=== PATIENT | female | born 1950 | race Caucasian/White ===

== ENCOUNTER 2016-08-02 13:22 | Inpatient (IN) | payer MEDICARE, MEDICAID ==
[~2016-08-02] VITALS: Ht 152.4 cm; Wt 53.5 kg
--- NOTE | 2016-08-02 13:22 | NUR ---
dr amado at the bedside for eval and exam.
[2016-08-02] MEDS ORDERED: ATOR20TA PO (13:48)
[2016-08-02] MEDS ORDERED: ISOS10TA2 PO (13:48)
[2016-08-02] MEDS ORDERED: AMLO5TAB4 PO (13:48)
[2016-08-02] MEDS ORDERED: HYDR50TA68 PO (13:48)
[2016-08-02] MEDS ORDERED: CLON0.3T PO (13:48)
[2016-08-02] MEDS ORDERED: MAGN400O4 PO (13:48)
[2016-08-02] MEDS ORDERED: SITA50TA PO (13:48)
[2016-08-02] MEDS ORDERED: CLON0.1T PO (13:48)
[2016-08-02] MEDS ORDERED: ATEN-171 PO (13:48)
[2016-08-02] MEDS ORDERED: ACET-2154 PO (13:48)
[2016-08-02] MEDS ORDERED: ACCUCHECK (13:50)
--- NOTE | 2016-08-02 13:51 | NUR ---
PT IS CALM AND COOPERATIVE AT THIS TIME, RESTRAINES REMOVED. LUNCH PROVIDED.
[2016-08-02 14:22] LABS: ALANINE AMINOTRANSFERASE 18 U/L (14-59); ALBUMIN 3.4 g/dL (3.4-5.0); ALKALINE PHOSPHATASE 63 U/L (50-136); ASPARTATE AMINOTRANSFERASE 18 U/L (15-37); BILIRUBIN,DIRECT 0.1 mg/dL (0.0-0.2); BILIRUBIN,TOTAL 0.6 mg/dL (0.2-1.0); CALCIUM 9.3 mg/dL (8.5-10.1); CARBON DIOXIDE 27 mmol/L (21-32); CHLORIDE 104 mmol/L (98-107); CREATININE 2.2 mg/dL (0.6-1.3); GFR 22 mL/min (>60); GLUCOSE 144 mg/dL (74-106); POTASSIUM 4.3 mmol/L (3.5-5.1); SODIUM SERUM 139 mmol/L (136-145); TOTAL PROTEIN, SERUM 7.5 g/dL (6.4-8.2); UREA NITROGEN, BLOOD 27 mg/dL (7-18)
[2016-08-02 14:23] LABS: ACETAMINOPHEN < 2.0 ug/mL (10-30)
[2016-08-02 14:38] LABS: ETHANOL < 3 MG/DL (0-0)
--- NOTE | 2016-08-02 14:40 | NUR ---
ASSISST PT TO BATHROOM FOR URINE, PT STATES SHE TRIED TO URINATE BUT NO URINE RIGHT NOW. MD OFFERED FOR PT TO HAVE A IN AND OUT F/C FOR URINE COLLECTION, PT STATED TO WAIT. EXTRA FLUIDS PROVIDED PER PT'S REQUEST.
--- NOTE | 2016-08-02 14:44 | NUR ---
[facility] COLLECTED AND SENT TO LAB. BELONGING LIST COMPLETED.
[2016-08-02 14:59] LABS: HEMATOCRIT 39.7 % (37.0-47.0); HEMOGLOBIN 12.5 g/dL (12.0-16.0); MEAN CORPUSCULAR HEMOGLOBIN 27.9 uug (27.0-31.0); MEAN CORPUSCULAR HGB CONC 32 g/dL (32.0-37.0); MEAN CORPUSCULAR VOLUME 88.6 fL (81.0-99.0); PLATELET COUNT (AUTO) 421 K/uL (150-450); RED BLOOD CELL COUNT(AUTO) 4.49 MIL/uL (4.20-5.40); RED CELL DISTRIBUTION WIDTH 14.3 % (11.5-14.5); WHITE BLOOD COUNT (AUTO) 7.8 K/uL (4.0-11.2)
--- NOTE | 2016-08-02 15:05 | NUR ---
PT IS MEDICALLY CLEARED BY DR RAMIREZ.
[2016-08-02 15:24] LABS: EOSINOPHILS % (MANUAL) 5 % (0-8); LYMPHOCYTES % (MANUAL) 22 % (20-40); MONOCYTES % (MANUAL) 7 % (2-10); NEUTROPHILS % (MANUAL) 66 % (42-75)
[2016-08-02] MEDS ORDERED: ACETAMINOPHEN 325 MG TABLET PO PRN (15:45)
[2016-08-02] MEDS ORDERED: TEMAZEPAM 7.5 MG CAPSULE PO PRN (15:45)
[2016-08-02] MEDS ORDERED: MAG HYDROX/AL HYDROX/SIMETH 30 ML LIQUID UDC PO PRN (15:45)
[2016-08-02] MEDS ORDERED: LORAZEPAM 0.5 MG TABLET PO PRN ×2 (15:45→19:45)
[2016-08-02] MEDS ORDERED: MAGNESIUM HYDROXIDE 30 ML LIQUID UDC PO PRN (15:45)
--- NOTE | 2016-08-02 15:45 | NUR ---
Pt received from ER on [facility]. Pt is anxious, easily irritable, and uncooperative. Refuses to sign all paperwork. When asked if she wanted staff to call son or daughter to inform of admission, pt responded "I don't have any family or friends. Don't call anyone." No overtly aggressive or combative behavior noted at this time. Appears depressed, flat affect, avoiding eye contact.
[2016-08-02 16:29] VITALS: BP 142/80
[2016-08-02] MEDS ORDERED: hydrALAZINE HCL 50 MG TABLET PO SCH (17:45)
[2016-08-02] MEDS ORDERED: ATENOLOL 50 MG TABLET PO SCH (17:45)
[2016-08-02] MEDS ORDERED: AMLODIPINE 5 MG TABLET PO SCH (17:45)
[2016-08-02] MEDS ORDERED: DEXTROSE 50% 50 ML DISP.SYRIN IV PRN (18:00)
--- NOTE | 2016-08-02 18:19 | NUR ---
Pt noted to have thrown dinner tray on the floor. Pt eating leftover food on table while laying down. Informed of aspiration risk, pt responded "I'm not a child, ok?" Pt also refused 2 BP medications. Risks and benefits explained. Pt states "They don't work, I don't need it, I've always had high blood pressure." Pt continues to refuse. Remains easily irritable but not combative or aggressive.
[2016-08-02 20:11] VITALS: BP 160/75
[2016-08-02] MEDS: BLOOD SUGAR DIAGNOSTIC 1 EACH STRIP VI SCH (21:28)
[2016-08-02] MEDS: ATORVASTATIN 20 MG TABLET PO SCH (21:29)
[2016-08-02] MEDS: CLONIDINE HCL 0.1 MG TABLET PO PRN (21:32)
[2016-08-02] MEDS: INSULIN REGULAR, HUMAN 300 UNIT/3 ML VIAL SQ PRN (21:38)
--- NOTE | 2016-08-02 22:00 | NUR ---
received to care, lying in bed, with the covers pulled over her face. remains isolative. resistive to interactions. compliant with bedtime medications, except for her sliding scale insulin(BLOOD SUGAR WAS 167), which she refused. as of 2199, she remains asleep. no distress noted. will continue to monitor closely.
[2016-08-02] MEDS: hydrALAZINE HCL 50 MG TABLET PO SCH (22:36)
--- NOTE | 2016-08-03 06:00 | NUR ---
slept 8.5 hours, total. compliant with AM meds, and accucheck. remains labile, when approached.
[2016-08-03] MEDS: hydrALAZINE HCL 50 MG TABLET PO SCH ×3 (06:09→22:00)
[2016-08-03] MEDS: BLOOD SUGAR DIAGNOSTIC 1 EACH STRIP VI SCH ×4 (06:09→20:41)
--- NOTE | 2016-08-03 06:30 | NUR ---
refused AM labs.
[2016-08-03 07:30] VITALS: BP 153/71
[2016-08-03] MEDS ORDERED: ATENOLOL 50 MG TABLET PO SCH (09:00)
[2016-08-03] MEDS ORDERED: SITAGLIPTIN PHOSPHATE 50 MG TABLET PO SCH (09:00)
[2016-08-03] MEDS: AMLODIPINE 5 MG TABLET PO SCH ×2 (10:22→20:30)
[2016-08-03] MEDS: LINAGLIPTIN 5 MG TABLET PO SCH (10:23)
[2016-08-03] MEDS: ISOSORBIDE DINITRATE 10 MG TABLET PO SCH ×3 (10:23→17:26)
[2016-08-03] MEDS: CLONIDINE HCL 0.3 MG TABLET PO SCH ×3 (10:23→17:26)
[2016-08-03] MEDS: ATENOLOL 50 MG TABLET PO SCH (12:43)
[2016-08-03] MEDS ORDERED: SERTRALINE HCL 50 MG TABLET PO SCH (14:45)
[2016-08-03] MEDS: DIVALPROEX SPRINKLE 125 MG CAP.SPRINK PO SCH ×2 (16:20→20:29)
--- NOTE | 2016-08-03 16:20 | NUR ---
Initial discharge instructions: The patient resides at [facility] ([facility]) [[address] [facility] [place] [address]; ]. Spoke with Rhina in admissions who stated that they will accept the patient back when she is stable. Spoke with the patient's daughter Naheed who stated that she would like for the patient to return there upon discharge. SW will speak with patient, family, and MD regarding most appropriate discharge plan. SS will form a safe and proper discharge.
[2016-08-03 16:35] VITALS: BP 131/64
[2016-08-03] MEDS: INSULIN REGULAR, HUMAN 300 UNIT/3 ML VIAL SQ PRN ×2 (17:27→17:35)
[2016-08-03] MEDS: ATORVASTATIN 20 MG TABLET PO SCH (20:29)
[2016-08-03 20:30] VITALS: BP 146/80
--- NOTE | 2016-08-03 22:00 | NUR ---
received to care, lying in bed, isolative, and easilly agitated. as of 2199, remains asleep, in bed. no interactions with peers. compliant with medications, except for her accucheck, which she refused. as of 2199, she remains asleep, but easy to awaken. no distress noted. will continue to monitor closely.
[2016-08-04] MEDS: BLOOD SUGAR DIAGNOSTIC 1 EACH STRIP VI SCH ×4 (06:04→21:00)
[2016-08-04] MEDS: hydrALAZINE HCL 50 MG TABLET PO SCH ×3 (06:04→21:47)
--- NOTE | 2016-08-04 06:23 | NUR ---
slept 8.0 hours, total. compliant with AM meds, and accucheck. appears cooperative, but suspicious, when approached. currently lying in bed. no distress noted.
[2016-08-04 07:30] VITALS: BP 120/71
[2016-08-04] MEDS: CLONIDINE HCL 0.3 MG TABLET PO SCH ×3 (09:00→17:44)
[2016-08-04] MEDS: DIVALPROEX SPRINKLE 125 MG CAP.SPRINK PO SCH ×2 (10:18→21:00)
[2016-08-04] MEDS: AMLODIPINE 5 MG TABLET PO SCH ×2 (10:20→21:00)
[2016-08-04] MEDS: ISOSORBIDE DINITRATE 10 MG TABLET PO SCH ×3 (10:20→17:44)
[2016-08-04] MEDS: LINAGLIPTIN 5 MG TABLET PO SCH (10:22)
[2016-08-04] MEDS: ATENOLOL 50 MG TABLET PO SCH (10:25)
--- NOTE | 2016-08-04 12:32 | NUR ---
WEEKLY MEETING PO INTAKE 0-50%, RECOMMEND ADDING BOOST GLUCOSE CONTROL BID IF PO INTAKE CONTINUES <50% BM PRESENT, SKIN INTACT NOTED ELEVATED BLOOD GLUCOSE LABS, WITH ORDER FOR INSULIN SSI MEDS: NORVASC,LIPITOR, DNI NORVASC WITH LOW NA DIET NUTRITION DIAGNOSIS: POOR PO INTAKE RELATED TO MENTAL STATUS EVIDENCED BY PO INTAKE 0-50% ALTERED NUTRITION RELATED LABS RELATED TO ENDOCRINE DYSFUNCTION EVIDENCED BY ELEVATED BG LABS MONITOR PO INTAKE, LABS Addendum: 08/04/16 at [address] Amended: Links added.
[2016-08-04 13:45] VITALS: BP 133/68
[2016-08-04 15:15] VITALS: BP 144/74
[2016-08-04 16:00] VITALS: BP_SYST 109; BP_SYST 134; BP_DIAS 60; BP_DIAS 61
[2016-08-04 18:56] LABS: *BILIRUBIN,URIN NEGATIVE (NEGATIVE); *BLOOD, URINE NEGATIVE (NEGATIVE); *CLARITY,URINE CLEAR (CLEAR); *COLOR,URINE YELLOW (YELLOW); *KETONES,URINE NEGATIVE (NEGATIVE); *PROTEIN,URINE 3+ (NEGATIVE); *UROBILINOGEN,URINE 0.2 E.U./dl (NORMAL); LEUKOCYTE ESTERASE ,URINE NEGATIVE (NEGATIVE); NITRITE, URINE NEGATIVE (NEGATIVE); PH,URINE 6.5 (5.0-8.0); UGLUCOSE TRACE (NEGATIVE)
[2016-08-04 19:08] LABS: *AMPHETAMINE, URINE NEGATIVE (NEGATIVE); *BARBITURATE, URINE NEGATIVE (NEGATIVE); *CANNABINOID, URINE NEGATIVE (NEGATIVE); *COCCAINE, URINE NEGATIVE (NEGATIVE); *OPIATE, URINE NEGATIVE (NEGATIVE); *PHENCYCLIDINE SCREEN,URINE NEGATIVE (NEGATIVE)
[2016-08-04 19:09] LABS: *CREATININE,URINE 104.7 mg/dL (30-125); *URINE TOTAL PROTEIN RANDOM 572.1 mg/dL (<150/24HR)
[2016-08-04 20:24] VITALS: BP 138/63
[2016-08-04 20:32] LABS: RBC,URINE 0-3 /HPF (0-3); SQUAMOUS EPITHELIAL CELL,UR FEW /HPF (NONE SEEN)
[2016-08-04] MEDS: ATORVASTATIN 20 MG TABLET PO SCH (21:00)
--- NOTE | 2016-08-04 22:00 | NUR ---
received to care, asleep in bed, becomes angry and verbally hostile, when engaged. initially agreed to take her bedtime medications, but tried to hide the pills, by dropping them on the floor. she then again agreed to take them, and replacement pills were offered, but she spit them out. she also refused her accucheck. as of 2199, she remains asleep, in bed. no distress noted. will continue to monitor closely.
[2016-08-05] MEDS: hydrALAZINE HCL 50 MG TABLET PO SCH ×3 (06:13→22:00)
[2016-08-05] MEDS: BLOOD SUGAR DIAGNOSTIC 1 EACH STRIP VI SCH ×4 (06:26→20:09)
--- NOTE | 2016-08-05 06:30 | NUR ---
slept 9.5 hours, total. compliant with AM meds, and accucheck. no distress noted.
[2016-08-05 07:30] VITALS: BP 158/75
--- NOTE | 2016-08-05 07:54 | NUR ---
REFUSED AM LABS
[2016-08-05] MEDS: FUROSEMIDE 20 MG TABLET PO SCH (08:35)
[2016-08-05] MEDS: AMLODIPINE 5 MG TABLET PO SCH ×2 (08:35→20:10)
[2016-08-05] MEDS: DIVALPROEX SPRINKLE 125 MG CAP.SPRINK PO SCH ×2 (08:36→20:06)
[2016-08-05] MEDS: ATENOLOL 50 MG TABLET PO SCH (08:36)
[2016-08-05] MEDS: LINAGLIPTIN 5 MG TABLET PO SCH (09:00)
[2016-08-05] MEDS: ISOSORBIDE DINITRATE 10 MG TABLET PO SCH ×3 (09:00→16:43)
[2016-08-05] MEDS: CLONIDINE HCL 0.3 MG TABLET PO SCH ×3 (09:00→16:43)
--- NOTE | 2016-08-05 11:31 | NUR ---
GPS NURSING 1130: PT REFUSED ACCUCHECK. EXPLAINED RISK AND BENEFITS, PT STILL REFUSED. PT STATED "IT'S PAINFUL, I AM NOT GONNA EAT". EXPLAINED THAT WE STILL NEED TO CHECK HER BLOOD SUGAR, PT STILL REFUSED.
[2016-08-05] MEDS: QUETIAPINE FUMARATE 25 MG TABLET PO SCH ×2 (12:00→16:55)
[2016-08-05] MEDS ORDERED: QUETIAPINE FUMARATE 25 MG TABLET PO PRN (12:00)
--- NOTE | 2016-08-05 16:41 | NUR ---
GPS PT REFUSED ACCUCHECK DESPITE ENCOURAGEMENT.
[2016-08-05 20:09] VITALS: BP 145/73
[2016-08-05] MEDS: ATORVASTATIN 20 MG TABLET PO SCH (20:10)
--- NOTE | 2016-08-05 20:11 | NUR ---
gps: patient refused all HS meds and blood sugar check.
[2016-08-06] MEDS: hydrALAZINE HCL 50 MG TABLET PO SCH ×3 (05:49→22:00)
[2016-08-06 06:23] VITALS: BP 148/72
[2016-08-06] MEDS: BLOOD SUGAR DIAGNOSTIC 1 EACH STRIP VI SCH ×4 (06:23→21:29)
--- NOTE | 2016-08-06 06:31 | NUR ---
GPS: PATIENT BLOOD PRESSURE 159/76 HYDRALAZINE 6 AM DOSE GIVEN. RECHECK BLOOD PRESSURE WAS 148/72. REMAIN UNCOOPERATIVE WITH MEDS AND CARE. ONLY TOOK HYDRALAZINE AM DOSE. SLEPT 8 HRS THROUGH THE NIGHT. ASSISTED WITH ADL'S. PATIENT IS VERY DISORGANIZED. CONTINUE PLAN OF CARE.
--- NOTE | 2016-08-06 06:31 | NUR ---
GPS: PATIENT REFUSED AM BLOOD SUGAR CHECK.
[2016-08-06 08:00] VITALS: BP 157/71
[2016-08-06] MEDS: CLONIDINE HCL 0.3 MG TABLET PO SCH ×3 (08:36→16:02)
[2016-08-06] MEDS: DIVALPROEX SPRINKLE 125 MG CAP.SPRINK PO SCH ×2 (08:57→21:17)
[2016-08-06] MEDS: ATENOLOL 50 MG TABLET PO SCH (08:57)
[2016-08-06] MEDS: LINAGLIPTIN 5 MG TABLET PO SCH (08:57)
[2016-08-06] MEDS: ISOSORBIDE DINITRATE 10 MG TABLET PO SCH ×3 (08:57→16:04)
[2016-08-06] MEDS: FUROSEMIDE 20 MG TABLET PO SCH (08:57)
[2016-08-06] MEDS: QUETIAPINE FUMARATE 25 MG TABLET PO SCH (08:57)
[2016-08-06] MEDS: AMLODIPINE 5 MG TABLET PO SCH ×2 (08:57→21:18)
--- NOTE | 2016-08-06 09:00 | NUR ---
MEDICATIONS: PT INITIALLY REFUSED ALL MEDICATIONS INCLUDING ACCUCHECK. EXPLAINED IMPORTANCE OF MEDICATIONS AND FINALLY THE PT AGREED TO TAKE CLONODINE FOR BP. REFUSED ALL OTHER BP/PSYCH MEDS AND ACCUCHECK. "I DONT NEED ANY MEDICATIONS, IM NOT TAKING SHIT FROM YOU. GET THE FUCK OUT OF HERE".
[2016-08-06] MEDS ORDERED: OLANZAPINE 10 MG VIAL IM ONE (09:45)
--- NOTE | 2016-08-06 09:45 | NUR ---
PT THREW HOT COFFEE, PITCHER OF WATER, AND BREAKFAST TRAY AT A NURSE WHILE THE NURSE WAS CHANGING THE ROOMATES BEDDING. PT IRATE AND ANGRY SCREAMING "GET THE FUCK OUT OF HERE, YOU ARE NOT ALLOWED IN MY ROOM." NOT REDIRECTABLE, CONTINUES TO REFUSE PO MEDICATIONS. GAVE ZYPREXA 5MG IM PER MD ORDER, PT TOLERATED WELL.
[2016-08-06 17:00] VITALS: BP 173/85
[2016-08-06] MEDS: ATORVASTATIN 20 MG TABLET PO SCH (21:18)
[2016-08-06] MEDS: OLANZAPINE 2.5 MG TABLET PO SCH (21:18)
[2016-08-06 21:25] VITALS: BP 153/68
[2016-08-06] MEDS: INSULIN REGULAR, HUMAN 300 UNIT/3 ML VIAL SQ PRN (21:33)
[2016-08-07] MEDS: hydrALAZINE HCL 50 MG TABLET PO SCH ×3 (06:00→22:00)
[2016-08-07] MEDS: BLOOD SUGAR DIAGNOSTIC 1 EACH STRIP VI SCH ×4 (06:39→20:28)
[2016-08-07] MEDS: OLANZAPINE 2.5 MG TABLET PO SCH ×2 (09:00→20:28)
[2016-08-07] MEDS: ISOSORBIDE DINITRATE 10 MG TABLET PO SCH ×3 (09:00→17:00)
[2016-08-07] MEDS: DIVALPROEX SPRINKLE 125 MG CAP.SPRINK PO SCH ×2 (09:00→20:26)
[2016-08-07] MEDS: ATENOLOL 50 MG TABLET PO SCH (09:00)
[2016-08-07] MEDS: FUROSEMIDE 20 MG TABLET PO SCH (09:00)
[2016-08-07] MEDS: LINAGLIPTIN 5 MG TABLET PO SCH (09:00)
[2016-08-07] MEDS: AMLODIPINE 5 MG TABLET PO SCH ×2 (09:00→20:27)
[2016-08-07] MEDS: CLONIDINE HCL 0.3 MG TABLET PO SCH ×3 (09:00→17:00)
--- NOTE | 2016-08-07 09:32 | NUR ---
Pt received sitting on chair in unit hallway. Easily irritable and angry. Confused at times. Pt refused all medications at this time, states "I don't need any of the things you give me. Go talk to my doctor." Remains very uncooperative with medications and care. No combative behvior noted at this time. Therapuetic communication provided.
[2016-08-07] MEDS ORDERED: OLANZAPINE 10 MG VIAL IM ONE (13:15)
--- NOTE | 2016-08-07 13:20 | NUR ---
Pt noted to be highly agitated, restless, unredirectable at this time. Pt attempting to elope, standing in front of unit door, attempting to open it. When redirecting pt, pt began posturing towards staff. Yelling profanities. Verbally abusive to staff, stating she hopes staff's family and children get killed. Security called. Refuses all PO medications. Refused accucheck. Refuses V/S check. Pt paranoid and delusional at this time, stating we are keeping her hostage in order to steal her purse and wallet. Pt then attempted to spit at nurse. Continues to be verbally abusive with poor impulse control. Called Dr. Mak and received order for Zyprexa 5mg IM x once. Noted and carried out.
[2016-08-07 15:19] VITALS: BP 126/62
[2016-08-07 20:00] VITALS: BP 180/91
[2016-08-07] MEDS: ATORVASTATIN 20 MG TABLET PO SCH (20:26)
--- NOTE | 2016-08-08 04:04 | NUR ---
Patient confused and disoriented, refusing medications and blood sugar checks. Seen patient ambulating in hallway, yelling out for her son. Reoriented patient, explained that son is not on the unit, patient became upset stating that her son was just in the room laying next to her in the bed. Offered medication but refused. will monitor. Addendum: 08/08/16 at 0638 by MARCIO ELIZONDO RN Patient refused blood sugar check despite education.
[2016-08-08] MEDS: hydrALAZINE HCL 50 MG TABLET PO SCH ×3 (05:47→21:45)
[2016-08-08] MEDS: BLOOD SUGAR DIAGNOSTIC 1 EACH STRIP VI SCH ×4 (06:46→20:17)
[2016-08-08] MEDS: DIVALPROEX SPRINKLE 125 MG CAP.SPRINK PO SCH ×3 (09:00→20:18)
[2016-08-08] MEDS: ISOSORBIDE DINITRATE 10 MG TABLET PO SCH ×4 (09:00→17:48)
[2016-08-08] MEDS: LINAGLIPTIN 5 MG TABLET PO SCH ×2 (09:00→09:51)
[2016-08-08] MEDS: ATENOLOL 50 MG TABLET PO SCH ×2 (09:00→09:50)
[2016-08-08] MEDS: AMLODIPINE 5 MG TABLET PO SCH ×3 (09:00→20:17)
[2016-08-08] MEDS: OLANZAPINE 2.5 MG TABLET PO SCH ×3 (09:00→20:17)
[2016-08-08] MEDS: FUROSEMIDE 20 MG TABLET PO SCH ×3 (09:00→12:23)
[2016-08-08] MEDS: CLONIDINE HCL 0.3 MG TABLET PO SCH ×4 (09:00→17:48)
[2016-08-08 15:42] VITALS: BP_SYST 168; BP_SYST 180; BP_DIAS 91
[2016-08-08 17:47] VITALS: BP 153/88
[2016-08-08 19:45] VITALS: BP 154/89
[2016-08-08] MEDS: ATORVASTATIN 20 MG TABLET PO SCH (20:17)
[2016-08-09] MEDS: hydrALAZINE HCL 50 MG TABLET PO SCH ×3 (06:20→21:25)
[2016-08-09] MEDS: BLOOD SUGAR DIAGNOSTIC 1 EACH STRIP VI SCH ×4 (06:28→21:00)
--- NOTE | 2016-08-09 06:54 | NUR ---
REMAIN UNCOOPERATIVE WITH MEDS. ASSISTED WITH ADL'S. BLOOD SUGAR 98 MG/DL THIS MORNING. REFUSED ALL MEDS EXCEPT AM HYDRALAZINE. SLEPT 8:30 HRS THROUGH THE NIGHT. CONTINUE MONITORING FOR SAFETY.
[2016-08-09 07:30] VITALS: BP 137/67
[2016-08-09] MEDS: FUROSEMIDE 20 MG TABLET PO SCH (09:00)
[2016-08-09] MEDS: AMLODIPINE 5 MG TABLET PO SCH ×2 (09:00→21:24)
[2016-08-09] MEDS: LINAGLIPTIN 5 MG TABLET PO SCH (09:00)
[2016-08-09] MEDS: ATENOLOL 50 MG TABLET PO SCH (09:00)
[2016-08-09] MEDS: CLONIDINE HCL 0.3 MG TABLET PO SCH ×3 (09:00→16:54)
[2016-08-09] MEDS: OLANZAPINE 2.5 MG TABLET PO SCH ×2 (09:00→21:00)
[2016-08-09] MEDS: DIVALPROEX SPRINKLE 125 MG CAP.SPRINK PO SCH ×2 (09:00→21:00)
[2016-08-09] MEDS: ISOSORBIDE DINITRATE 10 MG TABLET PO SCH ×3 (09:00→16:54)
[2016-08-09 16:10] VITALS: BP 169/79
[2016-08-09] MEDS: CLONIDINE HCL 0.1 MG TABLET PO PRN (20:10)
--- NOTE | 2016-08-09 20:10 | NUR ---
B/P IS NOW 182/94. PRN CLONIDINE WAS GIVEN, WITH SOME ENCOURAGEMENT; AT FIRST SHE TRIED TO HIDE THE PILL IN THE BLANKET, BUT EVENTUALLY TOOK IT, AFTER BEING TOLD THE RISKS OF NOT TAKING THE MEDICATION.
[2016-08-09 20:52] VITALS: BP 182/94
[2016-08-09] MEDS: ATORVASTATIN 20 MG TABLET PO SCH (21:00)
--- NOTE | 2016-08-09 21:24 | NUR ---
b/p is now . norvasc and hydralazine were given at this time.
--- NOTE | 2016-08-09 22:00 | NUR ---
received to care, lying in bed, isolative, and non compliant; refused blood sugar check. refused all medications, except for antihypertensive meds. attempts to spit meds out, when offered. monitored closely for safety. as of 2199, she remains asleep, but easy to awaken. no distress noted. will continue to monitor closely.
--- NOTE | 2016-08-09 22:20 | NUR ---
b/p is now 154/80
[2016-08-09 22:21] VITALS: BP 154/80
[2016-08-09] MEDS ORDERED: CARVEDILOL 12.5 MG TABLET PO SCH (23:00)
[2016-08-09] MEDS ORDERED: CARVEDILOL 12.5 MG TABLET ONE (23:20)
--- NOTE | 2016-08-09 23:22 | NUR ---
b/p is now 170/93. coreg was started at this time, per MD orders
[2016-08-10 00:29] VITALS: BP 156/78
--- NOTE | 2016-08-10 00:29 | NUR ---
b/p is now 156/78. continues to sleep.
[2016-08-10] MEDS: hydrALAZINE HCL 50 MG TABLET PO SCH ×3 (05:50→22:57)
--- NOTE | 2016-08-10 06:30 | NUR ---
slept 10 hours. assisted with am care and shower. compliant with am accucheck, b/p check, and b/p meds.
[2016-08-10] MEDS: BLOOD SUGAR DIAGNOSTIC 1 EACH STRIP VI SCH ×4 (06:34→21:56)
[2016-08-10 07:30] VITALS: BP 187/98
[2016-08-10] MEDS: CARVEDILOL 12.5 MG TABLET PO SCH ×2 (08:00→17:27)
[2016-08-10] MEDS: ISOSORBIDE DINITRATE 10 MG TABLET PO SCH ×3 (08:40→16:45)
[2016-08-10] MEDS: CLONIDINE HCL 0.3 MG TABLET PO SCH ×2 (08:40→12:21)
[2016-08-10] MEDS: DIVALPROEX SPRINKLE 125 MG CAP.SPRINK PO SCH ×2 (08:40→21:49)
[2016-08-10] MEDS: AMLODIPINE 5 MG TABLET PO SCH ×2 (08:41→21:50)
[2016-08-10] MEDS: LINAGLIPTIN 5 MG TABLET PO SCH (08:41)
[2016-08-10] MEDS: OLANZAPINE 2.5 MG TABLET PO SCH ×2 (08:41→16:50)
[2016-08-10] MEDS: FUROSEMIDE 20 MG TABLET PO SCH (08:41)
[2016-08-10 09:31] LABS: THYROID STIMULATING HORMONE 3.8 mIU/mL (0.358-3.740)
[2016-08-10] MEDS ORDERED: OLANZAPINE 2.5 MG TABLET PO SCH (11:45)
[2016-08-10] MEDS ORDERED: CLONIDINE-TTS 3 PATCH TD SCH (15:45)
[2016-08-10] MEDS: OLANZAPINE 10 MG VIAL IM PRN (17:05)
[2016-08-10 17:07] VITALS: BP 183/105
[2016-08-10] MEDS: CLONIDINE HCL 0.1 MG TABLET PO PRN (17:31)
[2016-08-10 18:44] VITALS: BP 138/75
[2016-08-10 20:00] VITALS: BP 151/78
[2016-08-10] MEDS: ATORVASTATIN 20 MG TABLET PO SCH (21:49)
--- NOTE | 2016-08-10 22:20 | NUR ---
Patient refused insulin. Patient Blood glucose level tested 167. (B/S of 161-200 = 3 units Per sliding scale) will continue to monitor
--- NOTE | 2016-08-11 02:30 | NUR ---
Pt found sitting on buttocks on bathroom floor conscious, per pt "I fell". Pt was assisted to standing position and assisted back to bed by staff. Vital signs 161/86, 78, 18, 97%, 98.0. Pt does c/o right hip pain 10/16 but refusing po prn medication for pain. skin intact, no injury noted at this time. MD was made aware and requested x-ray of right hip to be done in AM. Non skid socks placed on patient feet. Bed in low and locked position with alarm on. Will continue to monitor for safety.
[2016-08-11] MEDS: BLOOD SUGAR DIAGNOSTIC 1 EACH STRIP VI SCH ×4 (06:32→21:00)
[2016-08-11] MEDS: LEVOTHYROXINE SODIUM 25 MCG TABLET PO SCH (06:33)
--- NOTE | 2016-08-11 06:47 | NUR ---
Patient refused morning lab blood draw. Patient states that "they alexandro blood from her yesterday, they don't need to get more. It's too much". Will continue to monitor
[2016-08-11 06:52] VITALS: BP 172/95
[2016-08-11] MEDS: hydrALAZINE HCL 50 MG TABLET PO SCH ×3 (06:52→21:48)
--- NOTE | 2016-08-11 07:24 | NUR ---
Patient refused insulin. Patient blood glucose level is 179. Patient is due to receive insulin shot per sliding scale per MD order. Patient refused. will endorse to oncoming shift nurse
[2016-08-11 07:30] VITALS: BP 163/82
[2016-08-11] MEDS: LINAGLIPTIN 5 MG TABLET PO SCH (09:00)
[2016-08-11] MEDS: DIVALPROEX SPRINKLE 125 MG CAP.SPRINK PO SCH ×3 (09:02→21:46)
[2016-08-11] MEDS: FUROSEMIDE 20 MG TABLET PO SCH (09:02)
[2016-08-11] MEDS: AMLODIPINE 5 MG TABLET PO SCH ×2 (09:03→21:00)
[2016-08-11] MEDS: ISOSORBIDE DINITRATE 10 MG TABLET PO SCH ×3 (09:03→17:49)
[2016-08-11] MEDS: CARVEDILOL 12.5 MG TABLET PO SCH ×2 (09:03→17:52)
[2016-08-11] MEDS: OLANZAPINE 2.5 MG TABLET PO SCH ×2 (09:03→17:48)
[2016-08-11 16:00] VITALS: BP 113/81
[2016-08-11 20:08] VITALS: BP 129/62
[2016-08-11] MEDS: ATORVASTATIN 20 MG TABLET PO SCH ×2 (21:00→21:47)
--- NOTE | 2016-08-11 22:00 | NUR ---
received to care, lying in bed, sleeping on and off, pleasant, but isolative. initially refused her bedtime medications, but eventually took them, with some encouragement. continues to refuse her accucheck, stating that she doesnt want to be bothered. as of 2199, she appears to be asleep. no distress noted. monitored closely for safety; bed alarm armed. assisted as needed. will continue to monitor cloely.
--- NOTE | 2016-08-12 06:00 | NUR ---
cooperative with AM b/p check, b/p medication, and blood sugar check.
[2016-08-12] MEDS: BLOOD SUGAR DIAGNOSTIC 1 EACH STRIP VI SCH ×4 (06:07→21:00)
[2016-08-12] MEDS: hydrALAZINE HCL 50 MG TABLET PO SCH ×3 (06:07→21:43)
[2016-08-12] MEDS: LEVOTHYROXINE SODIUM 25 MCG TABLET PO SCH (06:07)
--- NOTE | 2016-08-12 06:30 | NUR ---
slept 7.5 hours. assisted with AM care, and shower. became combative and verbally abusive during shower, but calmed down afterwards. currently lying in bed. no distress noted.
[2016-08-12 07:30] VITALS: BP 140/68
[2016-08-12] MEDS: CARVEDILOL 12.5 MG TABLET PO SCH ×2 (08:00→18:00)
[2016-08-12] MEDS: LINAGLIPTIN 5 MG TABLET PO SCH (09:00)
[2016-08-12] MEDS: AMLODIPINE 5 MG TABLET PO SCH ×2 (09:00→21:00)
[2016-08-12] MEDS: FUROSEMIDE 20 MG TABLET PO SCH (09:00)
[2016-08-12] MEDS: ISOSORBIDE DINITRATE 10 MG TABLET PO SCH ×3 (09:00→17:00)
[2016-08-12] MEDS: OLANZAPINE 2.5 MG TABLET PO SCH ×2 (09:00→17:00)
[2016-08-12] MEDS: DIVALPROEX SPRINKLE 125 MG CAP.SPRINK PO SCH ×2 (09:00→21:00)
[2016-08-12] MEDS: OLANZAPINE 10 MG VIAL IM PRN (10:32)
--- NOTE | 2016-08-12 10:36 | NUR ---
PATIENT HAS BEEN REFUSING MEDS AND TO EAT , GAVE ZYPREXA 2.5 MG IM FOR REFUSING PO MEDS ,.
--- NOTE | 2016-08-12 15:17 | NUR ---
ATTEMPTED TO CALL DAUGHTER BACK REGARDING LASOX DOSE, IT JUST RANG AND RAND AND THE VOICEMAIL WAS FULL.
[2016-08-12] MEDS ORDERED: OLANZAPINE 10 MG VIAL IM PRN (15:45)
--- NOTE | 2016-08-12 18:10 | NUR ---
PATIENT HAS REFUSED P O ZYPREXA FOR EVENING MEDS . PATIENT REC D 5MG ZYPREXA IM LEFT UPPER ARM DIRECTED
[2016-08-12 20:00] VITALS: BP 146/88
--- NOTE | 2016-08-12 22:00 | NUR ---
received to care, lying in bed, with the covers over her head. becomes verbally abusive, when engaged. refused all food, fluids, and medications, including blood sugar check. the only medication she took was her hydralazine. as of 2199, she appears to be asleep. no distress noted. will continue to monitor closely.
[2016-08-13] MEDS: LEVOTHYROXINE SODIUM 25 MCG TABLET PO SCH (06:00)
[2016-08-13] MEDS: hydrALAZINE HCL 50 MG TABLET PO SCH ×3 (06:00→21:41)
--- NOTE | 2016-08-13 06:00 | NUR ---
sleet 9.75 hours, total. compliant with AM medications and blood sugar check(114). patient took off her gown, and refuses to get dressed. currently in bed, with the sheet covering her completely. no distress noted.
[2016-08-13] MEDS: BLOOD SUGAR DIAGNOSTIC 1 EACH STRIP VI SCH ×4 (06:01→21:00)
[2016-08-13 07:06] LABS: BASOPHILS # (AUTO) 0.1 K/uL (0.0-0.2); BASOPHILS % (AUTO) 1.8 % (0.0-2.0); EOSINOPHILS # (AUTO) 0.5 K/uL (0.0-0.7); EOSINOPHILS % (AUTO) 6.1 % (0.0-7.0); HEMATOCRIT 39.4 % (37.0-47.0); HEMOGLOBIN 12.9 g/dL (12.0-16.0); MEAN CORPUSCULAR HGB CONC 33 g/dL (32.0-37.0); MEAN CORPUSCULAR VOLUME 88.3 fL (81.0-99.0); MONOCYTES # (AUTO) 0.9 K/uL (0.1-1.30); MONOCYTES % (AUTO) 10.7 % (0.0-11.0); NEUTROPHILS # (AUTO) 4.6 K/uL (1.8-8.9); NEUTROPHILS % (AUTO) 57.4 % (38.5-71.5); PLATELET COUNT (AUTO) 377 K/uL (150-450); RED BLOOD CELL COUNT(AUTO) 4.46 MIL/uL (4.20-5.40); RED CELL DISTRIBUTION WIDTH 14.8 % (11.5-14.5); WHITE BLOOD COUNT (AUTO) 8.1 K/uL (4.0-11.2)
[2016-08-13 07:30] VITALS: BP 132/56
[2016-08-13 08:07] LABS: THYROID STIMULATING HORMONE 2.453 mIU/mL (0.358-3.740)
[2016-08-13 08:15] LABS: BILIRUBIN,TOTAL 0.5 mg/dL (0.2-1.0); CALCIUM 9.1 mg/dL (8.5-10.1); MAGNESIUM 2.3 mg/dL (1.8-2.4); PHOSPHOROUS 4.5 mg/dL (2.5-4.9); POTASSIUM 4.3 mmol/L (3.5-5.1); TOTAL PROTEIN, SERUM 7.4 g/dL (6.4-8.2)
[2016-08-13 08:16] LABS: CREATININE 2.4 mg/dL (0.6-1.3)
[2016-08-13] MEDS: DIVALPROEX SPRINKLE 125 MG CAP.SPRINK PO SCH ×2 (09:00→09:11)
[2016-08-13] MEDS ORDERED: FUROSEMIDE 20 MG TABLET PO SCH (09:00)
[2016-08-13] MEDS: LINAGLIPTIN 5 MG TABLET PO SCH (09:00)
[2016-08-13] MEDS: OLANZAPINE 2.5 MG TABLET PO SCH ×4 (09:00→17:39)
[2016-08-13] MEDS: AMLODIPINE 5 MG TABLET PO SCH ×2 (09:11→21:00)
[2016-08-13] MEDS: ASPIRIN 81 MG TAB.CHEW PO SCH (09:11)
[2016-08-13] MEDS: FUROSEMIDE 40 MG TABLET PO SCH (09:11)
[2016-08-13] MEDS: CARVEDILOL 12.5 MG TABLET PO SCH ×2 (09:12→17:46)
[2016-08-13] MEDS: ISOSORBIDE DINITRATE 10 MG TABLET PO SCH ×3 (09:12→17:47)
[2016-08-13] MEDS ORDERED: diphenhydrAMINE 25 MG CAP PO PRN (09:30)
--- NOTE | 2016-08-13 09:36 | NUR ---
GPS/RN- patient noted with some edema to right eye mostly this an, patient took medications but Zyprexa and Depakote withheld at this time, Dr Mak notified. Orders received and carried out for Benadryl 25mg by mouth at this time administered. Notifying Epic and nephrology for follow up. patient vitals remain stable. 02 sat 95% on room air, denies any distress patient verbally abusive this am and irritable. continue to monitor. patient continues to have poor PO intake, BUN and creatinine elevated. continue to monitor
--- NOTE | 2016-08-13 09:43 | NUR ---
GPS/RN- orders received from Dr Carlisle to discontinue Depakote orders at this time. Addendum: 08/13/16 at 0944 by DARIN GRIGGS RN correction . correct spelling of MD name is Aubree
--- NOTE | 2016-08-13 10:04 | NUR ---
GPS/RN- Dr Lemus here to assess patient. patient is not having an allergic reaction. Possible decreased lymphatic circulation, patient applies pressure and lays on that side of her face. patient redirected to try and lay on her back and reposition, also recommended by MD to apply cold or warm compress.
--- NOTE | 2016-08-13 11:05 | NUR ---
GPS/RN- per Dr Carlisle, continue to administer Zyprexa at this time. patient compliant
[2016-08-13 14:00] VITALS: BP 129/71
--- NOTE | 2016-08-13 16:43 | NUR ---
GPS/RN- patient periorbital edema improved this afternoon after repositioning and sitting up in bed. patient redirected to reposition often. continue to monitor no distress noted.
[2016-08-13 17:47] VITALS: BP 179/80
[2016-08-13 20:12] VITALS: BP 147/78
[2016-08-13] MEDS: ATORVASTATIN 20 MG TABLET PO SCH (21:00)
--- NOTE | 2016-08-13 22:00 | NUR ---
received to care, lying in bed, asleep, but easy to awaken. refused all food, fluids, and medications, including blood sugar check. had one episode of incontinence of loose stool. assisted with shower, and placed back in bed. the only medication she took was her hydralazine. as of 2199, she appears to be asleep. no distress noted. will continue to monitor closely.
[2016-08-14] MEDS: BLOOD SUGAR DIAGNOSTIC 1 EACH STRIP VI SCH (06:01)
[2016-08-14] MEDS: hydrALAZINE HCL 50 MG TABLET PO SCH (06:01)
[2016-08-14] MEDS: LEVOTHYROXINE SODIUM 25 MCG TABLET PO SCH (06:01)
[2016-08-14 07:30] VITALS: BP 156/81
[2016-08-14] MEDS: ISOSORBIDE DINITRATE 10 MG TABLET PO SCH (08:28)
[2016-08-14] MEDS: FUROSEMIDE 40 MG TABLET PO SCH (08:28)
[2016-08-14] MEDS: ASPIRIN 81 MG TAB.CHEW PO SCH (08:28)
[2016-08-14] MEDS: CARVEDILOL 12.5 MG TABLET PO SCH (08:28)
[2016-08-14 08:29] VITALS: BP 156/81
[2016-08-14] MEDS: OLANZAPINE 2.5 MG TABLET PO SCH (08:29)
[2016-08-14] MEDS: AMLODIPINE 5 MG TABLET PO SCH (08:29)
[2016-08-14] MEDS: LINAGLIPTIN 5 MG TABLET PO SCH (08:31)
[2016-08-14] MEDS: INSULIN REGULAR, HUMAN 300 UNIT/3 ML VIAL SQ PRN (08:33)
--- NOTE | 2016-08-14 09:45 | NUR ---
GPS: Nursing Notes: Discharge Notes: Patient is awake and responding to her name, poor anger management, poor impulse control, resistant with nursing care, denies any SI/HI, denies any AH/VH, denies any SOB, denies any pain or discomfort, discharge to Med. Surg. 2nd floor, room # 226 with 1:1 sitter for safety, report given to Caren RN, continue with 5250 hold and riese for psych. medication, Dx: Acute Renal Failure, V/S: 156/81, 98.0, 96, 18, 97%, 0/10, took all her belongings with her, Dr. Maciel and Dr. Mak were notify, continue with treatment plan.
== END 2016-08-14 09:45 | disposition short-term general hospital (02) | DRG 885 ==
LOC: ER 13:22 → GPS 15:13
PROVIDERS: ADMIT Psychiatry & Neurology Psychosomatic Medicine; ATTEND Internal Medicine
DX: F29 Unspecified psychosis not due to a substance or known physiological condition (principal); F02.81 Dementia in other diseases classified elsewhere, unspecified severity, with behavioral disturbance; N18.4 Chronic kidney disease, stage 4 (severe); N17.9 Acute kidney failure, unspecified; E11.65 Type 2 diabetes mellitus with hyperglycemia; I50.33 Acute on chronic diastolic (congestive) heart failure; F01.51 Vascular dementia, unspecified severity, with behavioral disturbance; I13.0 Hypertensive heart and chronic kidney disease with heart failure and stage 1 through stage 4 chronic kidney disease, or unspecified chronic kidney disease; J98.11 Atelectasis; D68.59 Other primary thrombophilia; G30.9 Alzheimer's disease, unspecified; Z87.440 Personal history of urinary (tract) infections; E11.22 Type 2 diabetes mellitus with diabetic chronic kidney disease; Z79.84 Long term (current) use of oral hypoglycemic drugs; E78.5 Hyperlipidemia, unspecified; T44.7X6A Underdosing of beta-adrenoreceptor antagonists, initial encounter; Z91.128 Patient's intentional underdosing of medication regimen for other reason; Y92.230 Patient room in hospital as the place of occurrence of the external cause; I27.2 Other secondary pulmonary hypertension; R13.10 Dysphagia, unspecified; E11.21 Type 2 diabetes mellitus with diabetic nephropathy; I70.0 Atherosclerosis of aorta; I08.1 Rheumatic disorders of both mitral and tricuspid valves; Z91.19 Patient's noncompliance with other medical treatment and regimen; Z79.899 Other long term (current) drug therapy; M19.90 Unspecified osteoarthritis, unspecified site; Z74.09 Other reduced mobility; R26.9 Unspecified abnormalities of gait and mobility
CPT/HCPCS: 36415; 71010; 73502; 76770; 80307; 83735; 84100; 84156; 84300; 84443; 85025; 93005; 93307; 97001; 97110; 97116; 97530; A4663; G0480-TC; G6040-TC; J1815; J2358; Q0163

== ENCOUNTER 2016-08-14 10:43 | Inpatient (IN) | payer MEDICARE, MEDICAID ==
[~2016-08-14] VITALS: Ht 152.4 cm; Wt 56.2 kg
[~2016-08-14 10:43] MED LIST: ACCUCHECK; ACET-2154 PO; AMLO5TAB4 PO; ATEN-171 PO; ATOR20TA PO; CLON0.1T PO; CLON0.3T PO; HYDR50TA68 PO; ISOS10TA2 PO; MAGN400O4 PO; SITA50TA PO
[2016-08-14 11:07] VITALS: BP 147/82
[2016-08-14] MEDS ORDERED: MAGNESIUM HYDROXIDE 30 ML LIQUID UDC PO PRN (11:45)
[2016-08-14] MEDS ORDERED: DEXTROSE 50% 50 ML DISP.SYRIN IV PRN (11:45)
[2016-08-14] MEDS ORDERED: CLONIDINE HCL 0.1 MG TABLET PO PRN (11:45)
[2016-08-14] MEDS: hydrALAZINE HCL 50 MG TABLET PO SCH ×2 (12:16→20:35)
[2016-08-14] MEDS: ISOSORBIDE DINITRATE 10 MG TABLET PO SCH ×2 (12:17→17:30)
[2016-08-14] MEDS: INSULIN REGULAR, HUMAN 300 UNIT/3 ML VIAL SQ PRN (12:20)
[2016-08-14] MEDS: PANTOPRAZOLE SODIUM 40 MG TABLET.DR PO SCH (12:44)
[2016-08-14] MEDS ORDERED: ONDANSETRON 4 MG/2 ML VIAL IV PRN (12:45)
[2016-08-14] MEDS ORDERED: ACETAMINOPHEN 325 MG TABLET PO PRN (12:45)
[2016-08-14 15:30] VITALS: BP 142/70
[2016-08-14] MEDS: FUROSEMIDE 20 MG TABLET PO SCH (15:40)
[2016-08-14 16:14] LABS: BASOPHILS # (AUTO) 0.1 K/uL (0.0-0.2); BASOPHILS % (AUTO) 1.2 % (0.0-2.0); EOSINOPHILS # (AUTO) 0.4 K/uL (0.0-0.7); EOSINOPHILS % (AUTO) 4.9 % (0.0-7.0); HEMATOCRIT 32.9 % (37.0-47.0); LYMPHOCYTES # (AUTO) 1.5 K/uL (0.8-4.8); LYMPHOCYTES % (AUTO) 20.4 % (20.5-51.5); MEAN CORPUSCULAR HEMOGLOBIN 29.1 uug (27.0-31.0); MEAN CORPUSCULAR HGB CONC 34 g/dL (32.0-37.0); MEAN CORPUSCULAR VOLUME 87.2 fL (81.0-99.0); MONOCYTES # (AUTO) 0.9 K/uL (0.1-1.30); MONOCYTES % (AUTO) 11.9 % (0.0-11.0); NEUTROPHILS # (AUTO) 4.5 K/uL (1.8-8.9); NEUTROPHILS % (AUTO) 61.6 % (38.5-71.5); PLATELET COUNT (AUTO) 332 K/uL (150-450); RED BLOOD CELL COUNT(AUTO) 3.78 MIL/uL (4.20-5.40); RED CELL DISTRIBUTION WIDTH 14.8 % (11.5-14.5); WHITE BLOOD COUNT (AUTO) 7.4 K/uL (4.0-11.2)
[2016-08-14 16:24] LABS: CALCIUM 8.7 mg/dL (8.5-10.1); POTASSIUM 4.9 mmol/L (3.5-5.1)
[2016-08-14 16:28] LABS: CREATININE 2.9 mg/dL (0.6-1.3)
[2016-08-14 16:29] LABS: ALBUMIN 2.9 g/dL (3.4-5.0); BILIRUBIN,TOTAL 0.4 mg/dL (0.2-1.0); MAGNESIUM 2.1 mg/dL (1.8-2.4); PHOSPHOROUS 4.8 mg/dL (2.5-4.9); TOTAL PROTEIN, SERUM 6.7 g/dL (6.4-8.2)
[2016-08-14 16:36] VITALS: BP 142/78
[2016-08-14] MEDS ORDERED: ATENOLOL 50 MG TABLET PO SCH (17:00)
[2016-08-14] MEDS: BLOOD SUGAR DIAGNOSTIC 1 EACH STRIP VI SCH ×2 (17:26→21:00)
[2016-08-14] MEDS: AMLODIPINE 5 MG TABLET PO SCH (17:30)
[2016-08-14 20:00] VITALS: BP 153/88
[2016-08-15] MEDS: hydrALAZINE HCL 50 MG TABLET PO SCH ×3 (03:45→20:18)
[2016-08-15 05:57] VITALS: BP 135/75
[2016-08-15] MEDS: BLOOD SUGAR DIAGNOSTIC 1 EACH STRIP VI SCH ×4 (06:18→20:11)
[2016-08-15] MEDS: PANTOPRAZOLE SODIUM 40 MG TABLET.DR PO SCH (06:18)
[2016-08-15 06:31] LABS: ALBUMIN 2.7 g/dL (3.4-5.0); BILIRUBIN,TOTAL 0.4 mg/dL (0.2-1.0); CALCIUM 8.4 mg/dL (8.5-10.1); MAGNESIUM 2.1 mg/dL (1.8-2.4); PHOSPHOROUS 4.2 mg/dL (2.5-4.9); POTASSIUM 4.2 mmol/L (3.5-5.1); TOTAL PROTEIN, SERUM 6.2 g/dL (6.4-8.2)
[2016-08-15 06:34] LABS: CREATININE 2.8 mg/dL (0.6-1.3)
[2016-08-15 06:52] LABS: BASOPHILS # (AUTO) 0.1 K/uL (0.0-0.2); BASOPHILS % (AUTO) 1.2 % (0.0-2.0); EOSINOPHILS # (AUTO) 0.4 K/uL (0.0-0.7); EOSINOPHILS % (AUTO) 5.5 % (0.0-7.0); HEMATOCRIT 29.9 % (37.0-47.0); LYMPHOCYTES % (AUTO) 27.6 % (20.5-51.5); MEAN CORPUSCULAR HEMOGLOBIN 29.8 uug (27.0-31.0); MEAN CORPUSCULAR HGB CONC 34 g/dL (32.0-37.0); MONOCYTES # (AUTO) 0.9 K/uL (0.1-1.30); NEUTROPHILS # (AUTO) 3.8 K/uL (1.8-8.9); NEUTROPHILS % (AUTO) 52.7 % (38.5-71.5); PLATELET COUNT (AUTO) 297 K/uL (150-450); RED BLOOD CELL COUNT(AUTO) 3.35 MIL/uL (4.20-5.40); RED CELL DISTRIBUTION WIDTH 14.8 % (11.5-14.5); WHITE BLOOD COUNT (AUTO) 7.2 K/uL (4.0-11.2)
[2016-08-15] MEDS: ATORVASTATIN 20 MG TABLET PO SCH (09:00)
[2016-08-15] MEDS: ISOSORBIDE DINITRATE 10 MG TABLET PO SCH ×3 (09:00→17:00)
[2016-08-15] MEDS: FUROSEMIDE 20 MG TABLET PO SCH (09:00)
[2016-08-15] MEDS: ASPIRIN EC 81 MG TABLET.DR PO SCH (09:00)
[2016-08-15] MEDS ORDERED: SITAGLIPTIN PHOSPHATE 50 MG TABLET PO SCH (09:00)
[2016-08-15] MEDS: LINAGLIPTIN 5 MG TABLET PO SCH (09:00)
[2016-08-15] MEDS: AMLODIPINE 5 MG TABLET PO SCH ×2 (09:00→17:00)
[2016-08-15 10:26] VITALS: BP 167/84
[2016-08-15 16:01] VITALS: BP 145/86
[2016-08-15] MEDS: CARVEDILOL 12.5 MG TABLET PO SCH (18:00)
[2016-08-15 20:18] VITALS: BP 176/97
[2016-08-16 04:57] VITALS: BP 165/84
[2016-08-16] MEDS: hydrALAZINE HCL 50 MG TABLET PO SCH ×3 (05:02→20:17)
[2016-08-16] MEDS: BLOOD SUGAR DIAGNOSTIC 1 EACH STRIP VI SCH ×4 (06:32→20:54)
[2016-08-16] MEDS: PANTOPRAZOLE SODIUM 40 MG TABLET.DR PO SCH (06:32)
[2016-08-16 06:58] LABS: BASOPHILS # (AUTO) 0.1 K/uL (0.0-0.2); BASOPHILS % (AUTO) 1.8 % (0.0-2.0); EOSINOPHILS # (AUTO) 0.5 K/uL (0.0-0.7); EOSINOPHILS % (AUTO) 6.4 % (0.0-7.0); HEMATOCRIT 32.2 % (37.0-47.0); HEMOGLOBIN 10.8 g/dL (12.0-16.0); LYMPHOCYTES # (AUTO) 2.1 K/uL (0.8-4.8); LYMPHOCYTES % (AUTO) 27.6 % (20.5-51.5); MEAN CORPUSCULAR HEMOGLOBIN 29.4 uug (27.0-31.0); MEAN CORPUSCULAR HGB CONC 34 g/dL (32.0-37.0); MEAN CORPUSCULAR VOLUME 87.9 fL (81.0-99.0); MONOCYTES # (AUTO) 0.9 K/uL (0.1-1.30); MONOCYTES % (AUTO) 11.5 % (0.0-11.0); NEUTROPHILS % (AUTO) 52.7 % (38.5-71.5); PLATELET COUNT (AUTO) 320 K/uL (150-450); RED BLOOD CELL COUNT(AUTO) 3.66 MIL/uL (4.20-5.40); RED CELL DISTRIBUTION WIDTH 14.6 % (11.5-14.5); WHITE BLOOD COUNT (AUTO) 7.6 K/uL (4.0-11.2)
[2016-08-16 07:13] LABS: ALBUMIN 2.7 g/dL (3.4-5.0); BILIRUBIN,TOTAL 0.4 mg/dL (0.2-1.0); CALCIUM 8.7 mg/dL (8.5-10.1); CREATININE 2.5 mg/dL (0.6-1.3); MAGNESIUM 2.3 mg/dL (1.8-2.4); PHOSPHOROUS 4.6 mg/dL (2.5-4.9); POTASSIUM 4.3 mmol/L (3.5-5.1); TOTAL PROTEIN, SERUM 6.5 g/dL (6.4-8.2)
[2016-08-16 08:00] VITALS: BP 150/75
[2016-08-16] MEDS: ATORVASTATIN 20 MG TABLET PO SCH (08:37)
[2016-08-16] MEDS: AMLODIPINE 5 MG TABLET PO SCH ×2 (08:38→16:08)
[2016-08-16] MEDS: CARVEDILOL 12.5 MG TABLET PO SCH ×2 (08:38→18:06)
[2016-08-16] MEDS: FUROSEMIDE 20 MG TABLET PO SCH (08:39)
[2016-08-16] MEDS: ISOSORBIDE DINITRATE 10 MG TABLET PO SCH ×3 (08:39→16:08)
[2016-08-16] MEDS: ASPIRIN EC 81 MG TABLET.DR PO SCH (08:39)
[2016-08-16] MEDS: INSULIN REGULAR, HUMAN 300 UNIT/3 ML VIAL SQ PRN ×3 (08:40→18:09)
[2016-08-16] MEDS: LINAGLIPTIN 5 MG TABLET PO SCH (08:48)
[2016-08-16 09:39] LABS: *BILIRUBIN,URIN NEGATIVE (NEGATIVE); *BLOOD, URINE Trace-intact (NEGATIVE); *CLARITY,URINE CLEAR (CLEAR); *COLOR,URINE LIGHT YELLOW (YELLOW); *KETONES,URINE NEGATIVE (NEGATIVE); *UROBILINOGEN,URINE 0.2 E.U./dl (NORMAL); LEUKOCYTE ESTERASE ,URINE NEGATIVE (NEGATIVE); NITRITE, URINE NEGATIVE (NEGATIVE); UGLUCOSE TRACE (NEGATIVE)
[2016-08-16 10:02] LABS: *PROTEIN,URINE 3+ (NEGATIVE)
[2016-08-16 10:03] LABS: BACTERIA,URINE NONE SEEN /HPF (NONE SEEN); WBC,URINE 0-3 /HPF (0-3)
[2016-08-16 10:04] LABS: SQUAMOUS EPITHELIAL CELL,UR FEW /HPF (NONE SEEN)
[2016-08-16 10:43] LABS: *CREATININE,URINE 62.9 mg/dL (30-125); *URINE TOTAL PROTEIN RANDOM 377.2 mg/dL (<150/24HR)
[2016-08-16 11:54] VITALS: BP 157/82
[2016-08-16] MEDS ORDERED: OLANZAPINE 10 MG VIAL IM PRN (14:45)
[2016-08-16] MEDS ORDERED: OLANZAPINE 5 MG TABLET PO SCH (14:45)
[2016-08-16] MEDS: OLANZAPINE 5 MG TABLET PO SCH (16:07)
[2016-08-16 16:20] VITALS: BP 163/92
[2016-08-16 20:21] VITALS: BP 134/70
[2016-08-17] MEDS: hydrALAZINE HCL 50 MG TABLET PO SCH ×3 (04:15→20:41)
[2016-08-17 06:01] VITALS: BP 133/71
[2016-08-17] MEDS: PANTOPRAZOLE SODIUM 40 MG TABLET.DR PO SCH (06:03)
[2016-08-17] MEDS: BLOOD SUGAR DIAGNOSTIC 1 EACH STRIP VI SCH ×4 (06:21→20:41)
[2016-08-17] MEDS: FUROSEMIDE 20 MG TABLET PO SCH (08:46)
[2016-08-17] MEDS: ATORVASTATIN 20 MG TABLET PO SCH (08:46)
[2016-08-17] MEDS: ASPIRIN EC 81 MG TABLET.DR PO SCH (08:46)
[2016-08-17] MEDS: OLANZAPINE 5 MG TABLET PO SCH ×2 (08:47→17:20)
[2016-08-17] MEDS: ISOSORBIDE DINITRATE 10 MG TABLET PO SCH ×3 (08:47→17:22)
[2016-08-17] MEDS: CARVEDILOL 12.5 MG TABLET PO SCH ×2 (08:47→17:24)
[2016-08-17] MEDS: AMLODIPINE 5 MG TABLET PO SCH ×2 (08:48→17:23)
[2016-08-17] MEDS: LINAGLIPTIN 5 MG TABLET PO SCH (08:50)
[2016-08-17 09:35] LABS: BASOPHILS # (AUTO) 0.2 K/uL (0.0-0.2); BASOPHILS % (AUTO) 2.1 % (0.0-2.0); EOSINOPHILS # (AUTO) 0.6 K/uL (0.0-0.7); EOSINOPHILS % (AUTO) 7.1 % (0.0-7.0); HEMATOCRIT 33.8 % (37.0-47.0); HEMOGLOBIN 11.3 g/dL (12.0-16.0); LYMPHOCYTES # (AUTO) 2.2 K/uL (0.8-4.8); LYMPHOCYTES % (AUTO) 26.6 % (20.5-51.5); MEAN CORPUSCULAR HEMOGLOBIN 29.4 uug (27.0-31.0); MEAN CORPUSCULAR HGB CONC 34 g/dL (32.0-37.0); MONOCYTES # (AUTO) 0.9 K/uL (0.1-1.30); MONOCYTES % (AUTO) 10.6 % (0.0-11.0); NEUTROPHILS # (AUTO) 4.3 K/uL (1.8-8.9); NEUTROPHILS % (AUTO) 53.6 % (38.5-71.5); PLATELET COUNT (AUTO) 349 K/uL (150-450); RED BLOOD CELL COUNT(AUTO) 3.84 MIL/uL (4.20-5.40); RED CELL DISTRIBUTION WIDTH 14.6 % (11.5-14.5); WHITE BLOOD COUNT (AUTO) 8.2 K/uL (4.0-11.2)
[2016-08-17 09:52] LABS: ALBUMIN 2.8 g/dL (3.4-5.0); BILIRUBIN,TOTAL 0.4 mg/dL (0.2-1.0); CALCIUM 8.6 mg/dL (8.5-10.1); MAGNESIUM 2.2 mg/dL (1.8-2.4); PHOSPHOROUS 4.4 mg/dL (2.5-4.9); POTASSIUM 4.6 mmol/L (3.5-5.1); TOTAL PROTEIN, SERUM 6.7 g/dL (6.4-8.2)
[2016-08-17 09:56] LABS: CREATININE 2.7 mg/dL (0.6-1.3)
[2016-08-17 11:02] VITALS: BP 125/62
[2016-08-17] MEDS: INSULIN REGULAR, HUMAN 300 UNIT/3 ML VIAL SQ PRN ×2 (12:19→17:30)
[2016-08-17 15:09] VITALS: BP 132/72
[2016-08-17 20:00] VITALS: BP 143/75
[2016-08-18] MEDS: hydrALAZINE HCL 50 MG TABLET PO SCH ×3 (05:17→20:20)
[2016-08-18 05:29] VITALS: BP 131/65
[2016-08-18] MEDS: BLOOD SUGAR DIAGNOSTIC 1 EACH STRIP VI SCH ×4 (06:35→21:38)
[2016-08-18] MEDS: PANTOPRAZOLE SODIUM 40 MG TABLET.DR PO SCH (06:35)
[2016-08-18] MEDS: LINAGLIPTIN 5 MG TABLET PO SCH (08:51)
[2016-08-18] MEDS: FUROSEMIDE 20 MG TABLET PO SCH (08:52)
[2016-08-18] MEDS: OLANZAPINE 5 MG TABLET PO SCH ×2 (08:52→17:05)
[2016-08-18] MEDS: ASPIRIN EC 81 MG TABLET.DR PO SCH (08:52)
[2016-08-18] MEDS: ATORVASTATIN 20 MG TABLET PO SCH (08:52)
[2016-08-18] MEDS: ISOSORBIDE DINITRATE 10 MG TABLET PO SCH ×3 (08:53→17:04)
[2016-08-18] MEDS: AMLODIPINE 5 MG TABLET PO SCH ×2 (08:53→17:05)
[2016-08-18] MEDS: CARVEDILOL 12.5 MG TABLET PO SCH ×2 (08:59→17:04)
[2016-08-18 11:03] VITALS: BP 138/67
[2016-08-18 11:18] LABS: ALBUMIN 2.6 g/dL (3.4-5.0); BILIRUBIN,TOTAL 0.3 mg/dL (0.2-1.0); CALCIUM 8.5 mg/dL (8.5-10.1); MAGNESIUM 2.1 mg/dL (1.8-2.4); PHOSPHOROUS 4.1 mg/dL (2.5-4.9); POTASSIUM 4.2 mmol/L (3.5-5.1); TOTAL PROTEIN, SERUM 6.3 g/dL (6.4-8.2)
[2016-08-18 11:20] LABS: CREATININE 2.7 mg/dL (0.6-1.3)
[2016-08-18 11:21] LABS: BASOPHILS # (AUTO) 0.2 K/uL (0.0-0.2); BASOPHILS % (AUTO) 1.7 % (0.0-2.0); EOSINOPHILS # (AUTO) 0.5 K/uL (0.0-0.7); EOSINOPHILS % (AUTO) 5.8 % (0.0-7.0); HEMATOCRIT 30.5 % (37.0-47.0); HEMOGLOBIN 10.1 g/dL (12.0-16.0); LYMPHOCYTES # (AUTO) 1.8 K/uL (0.8-4.8); LYMPHOCYTES % (AUTO) 20.1 % (20.5-51.5); MEAN CORPUSCULAR HGB CONC 33 g/dL (32.0-37.0); MEAN CORPUSCULAR VOLUME 87.6 fL (81.0-99.0); MONOCYTES # (AUTO) 0.9 K/uL (0.1-1.30); MONOCYTES % (AUTO) 10.4 % (0.0-11.0); NEUTROPHILS # (AUTO) 5.7 K/uL (1.8-8.9); PLATELET COUNT (AUTO) 343 K/uL (150-450); RED BLOOD CELL COUNT(AUTO) 3.48 MIL/uL (4.20-5.40); RED CELL DISTRIBUTION WIDTH 14.8 % (11.5-14.5); WHITE BLOOD COUNT (AUTO) 9.1 K/uL (4.0-11.2)
[2016-08-18] MEDS: INSULIN REGULAR, HUMAN 300 UNIT/3 ML VIAL SQ PRN ×3 (12:23→21:41)
[2016-08-18 15:08] VITALS: BP 136/80
[2016-08-18 20:00] VITALS: BP 128/61
[2016-08-19 04:00] VITALS: BP 150/79
[2016-08-19] MEDS: hydrALAZINE HCL 50 MG TABLET PO SCH ×2 (05:44→12:16)
[2016-08-19] MEDS: PANTOPRAZOLE SODIUM 40 MG TABLET.DR PO SCH (07:19)
[2016-08-19] MEDS: ISOSORBIDE DINITRATE 10 MG TABLET PO SCH ×2 (08:54→12:18)
[2016-08-19] MEDS: ASPIRIN EC 81 MG TABLET.DR PO SCH (08:54)
[2016-08-19] MEDS: OLANZAPINE 5 MG TABLET PO SCH (08:54)
[2016-08-19] MEDS: FUROSEMIDE 20 MG TABLET PO SCH (08:54)
[2016-08-19] MEDS: AMLODIPINE 5 MG TABLET PO SCH (08:54)
[2016-08-19] MEDS: CARVEDILOL 12.5 MG TABLET PO SCH (08:54)
[2016-08-19] MEDS: ATORVASTATIN 20 MG TABLET PO SCH (08:54)
[2016-08-19] MEDS: LINAGLIPTIN 5 MG TABLET PO SCH (08:56)
[2016-08-19] MEDS: BLOOD SUGAR DIAGNOSTIC 1 EACH STRIP VI SCH ×2 (08:59→12:04)
[2016-08-19] MEDS: INSULIN REGULAR, HUMAN 300 UNIT/3 ML VIAL SQ PRN ×2 (08:59→12:18)
[2016-08-19] MEDS ORDERED: Olanzapine PO (10:38)
[2016-08-19] MEDS ORDERED: CARV12.52 PO (10:38)
[2016-08-19] MEDS ORDERED: Furosemide PO (10:38)
[2016-08-19 10:46] LABS: ALBUMIN 2.5 g/dL (3.4-5.0); BILIRUBIN,TOTAL 0.3 mg/dL (0.2-1.0); CALCIUM 8.5 mg/dL (8.5-10.1); MAGNESIUM 2.1 mg/dL (1.8-2.4); PHOSPHOROUS 4.5 mg/dL (2.5-4.9); TOTAL PROTEIN, SERUM 6.1 g/dL (6.4-8.2)
[2016-08-19 10:48] LABS: CREATININE 2.7 mg/dL (0.6-1.3)
[2016-08-19 10:51] LABS: BASOPHILS # (AUTO) 0.2 K/uL (0.0-0.2); BASOPHILS % (AUTO) 1.8 % (0.0-2.0); EOSINOPHILS # (AUTO) 0.4 K/uL (0.0-0.7); EOSINOPHILS % (AUTO) 4.7 % (0.0-7.0); HEMATOCRIT 30.2 % (37.0-47.0); HEMOGLOBIN 10.1 g/dL (12.0-16.0); LYMPHOCYTES % (AUTO) 22.9 % (20.5-51.5); MEAN CORPUSCULAR HEMOGLOBIN 29.6 uug (27.0-31.0); MEAN CORPUSCULAR HGB CONC 34 g/dL (32.0-37.0); MEAN CORPUSCULAR VOLUME 88.4 fL (81.0-99.0); MONOCYTES # (AUTO) 0.8 K/uL (0.1-1.30); MONOCYTES % (AUTO) 9.2 % (0.0-11.0); NEUTROPHILS # (AUTO) 5.2 K/uL (1.8-8.9); NEUTROPHILS % (AUTO) 61.4 % (38.5-71.5); PLATELET COUNT (AUTO) 342 K/uL (150-450); RED BLOOD CELL COUNT(AUTO) 3.42 MIL/uL (4.20-5.40); RED CELL DISTRIBUTION WIDTH 14.9 % (11.5-14.5); WHITE BLOOD COUNT (AUTO) 8.6 K/uL (4.0-11.2)
[2016-08-19 10:59] VITALS: BP 129/60
[2016-08-19 15:34] VITALS: BP 151/69
[2016-08-20 21:07] LABS: *ANTI-SCLERODERMA-70 AB <0.2 AI (0.0-0.9); *RNP ANTIBODIES 0.2 AI (0.0-0.9); *SJOGREN'S ANTI-SS-A <0.2 AI (0.0-0.9); *SJOGREN'S ANTI-SS-B <0.2 AI (0.0-0.9); *SMITH ANTIBODIES <0.2 AI (0.0-0.9); ANTI-DNA(DS) AB, QN <1 IU/mL (0-9); ANTI-NUCLEAR AB DIRECT Negative (Negative)
[2016-08-21 07:07] LABS: COMPLEMENT, C3 SERUM 131 mg/dL (82-167); COMPLEMENT, C4 SERUM 27 mg/dL (14-44)
[2016-08-21 17:29] LABS: HCV AB <0.1 s/co ratio (0.0-0.9); HEPATITIS B SURFACE AB Non Reactive (.); HEPATITIS B SURFACE AG Confirm. indicated (Negative); HEPATITIS B SURFACE AG CONF Positive (.)
== END 2016-08-19 16:55 | DRG 291 ==
LOC: MED 10:43 → TELE 11:09 → MED 14:30
PROVIDERS: ADMIT Internal Medicine; ATTEND Internal Medicine
DX: I13.0 Hypertensive heart and chronic kidney disease with heart failure and stage 1 through stage 4 chronic kidney disease, or unspecified chronic kidney disease (principal); I50.33 Acute on chronic diastolic (congestive) heart failure; G92 Toxic encephalopathy; E44.0 Moderate protein-calorie malnutrition; N17.9 Acute kidney failure, unspecified; E87.0 Hyperosmolality and hypernatremia; F03.91 Unspecified dementia, unspecified severity, with behavioral disturbance; E11.21 Type 2 diabetes mellitus with diabetic nephropathy; E11.22 Type 2 diabetes mellitus with diabetic chronic kidney disease; N18.9 Chronic kidney disease, unspecified; E11.65 Type 2 diabetes mellitus with hyperglycemia; F29 Unspecified psychosis not due to a substance or known physiological condition; D64.9 Anemia, unspecified; E78.5 Hyperlipidemia, unspecified; I25.10 Atherosclerotic heart disease of native coronary artery without angina pectoris; Z87.440 Personal history of urinary (tract) infections; Z91.19 Patient's noncompliance with other medical treatment and regimen; I27.2 Other secondary pulmonary hypertension; H05.229 Edema of unspecified orbit; I36.1 Nonrheumatic tricuspid (valve) insufficiency; R93.1 Abnormal findings on diagnostic imaging of heart and coronary circulation; I34.0 Nonrheumatic mitral (valve) insufficiency; I37.1 Nonrheumatic pulmonary valve insufficiency; Z68.24 Body mass index [BMI] 24.0-24.9, adult
CPT/HCPCS: 36415; 71010; 83735; 83970; 84100; 84156; 84300; 85025; 85651; 86038; 86160; 86706; 86803; 87086; 87340; 92506; 93005; A4663; J1815